=== PATIENT | female | born 1955 | race Caucasian/White ===

== ENCOUNTER → 2017-03-22 | Outpatient (CLI) | payer MEDICARE ==
[~2017-03-22] MED LIST: AMARYL PO; ASPIRIN ENTERI325 M1 PO; ASPIRIN81 M2 PO; ASPIRINEC PO; ATORVASTATIN CA80 MG PO; AVANDAMET 4 MG/1 TAB PO; BENAZEPRIL HCL40 MG PO; CELEXA PO; CITALOPRAM HBR40 M1 PO; COREG12.5 MG PO; COUMADIN5 MG PO; COVERA HS PO; CRESTOR PO; CRESTOR10 MG PO; ELIQUIS5 MG PO; FUROSEMIDE40 MG PO; HYDRALAZINE HCL25 MG PO; HYDROCHLOROTH12.5 MG PO; K-DUR20 ME2 PO; LANTUS100 U/ML SQ; LANTUS100 U/ML SUBQ; LASIX PO; LEVAQUIN750 M1 PO; LEVEMIR100 U/ML SQ; LIPITOR80 MG PO; LISINOPRIL20 MG PO; LISINOPRIL5 MG PO; LOTENSIN HCT 201 TA1 PO; LOTENSIN40 MG PO; LOVENOX80 MG/0.8 INJ; METOCLOPRAMIDE H5 M1 PO; METOCLOPRAMIDE H5 MG PO; NITROGLYCERIN0.4 MG SL; NORVASC10 MG PO; NOVOLOG FL100 UNIT/1 SUBQ; NOVOLOG100 U/M1 SQ; NOVOLOG100 U/M1 SUBQ; NOVOLOG100 U/ML SQ; NOVOLOG7030 SUBQ; PANTOPRAZOLE SO40 MG PO; PERCOCET 5-3251 TAB PO; PLAVIX PO; POTASSIUM CHLO10 MEQ PO; PRO-AMATINE5 M1 PO; PROAMATINE10 MG PO; TOPROL XL PO; VIMPAT150 MG PO; VIMPAT50 MG PO; VITAMIN D1000 UNIT PO; ZESTRIL10 M2 PO; ZOCOR PO
--- NOTE | ~2017-03-22 | MY29 ---
[facility] A Service of [facility] RADIOLOGY TEXT RESULTS PATIENT: MEY NEWTON LOCATION: [facility] : 51 UNIT #: [id number] AGE: [address]: Isaias España MD SEX: F ORDER DR: [id number] [facility] [address]. [place], [place] [address] [id number] O MR#: [id number] Acc #: [id number] NAME: MEY NEWTON. : 1955 SEX: F STUDY DATE/TIME: 03/22/2017 14:58 UNIT: [facility] ROOM: STUDY DESCRIPTION: [facility] SCREENING W/ CAD BILAT Attending Physician: Isaias España M.D. Referring Physician: Isaias España M.D. Ordering Physician: Isaias España M.D. Primary Care Physician: Isaias España M.D. MEDICAL IMAGING REPORT This report is preliminary unless electronic signature is present EXAM Digital screening mammogram 03/22/2017 HISTORY 61-year-old woman positive family history, sister age 57. Annual screen. COMPARISON 12/01/2010. FINDINGS Digital imaging of each breast was completed utilizing screening protocol. Review includes FDA-approved CAD device. Breast parenchyma is partially fatty replaced. Vascular calcification is noted bilaterally. There is no interval occurring mass. There are no suspicious microcalcifications and no focal architectural distortion. IMPRESSION Negative mammogram. Annual screening recommended. Patients over the age of 40 are entered into a reminder system with target due date for the next mammogram. A result letter will also be sent to the patient. BIRADS: 1 Negative Dictated by... Fran Butler M.D. THIS IS AN ELECTRONICALLY VERIFIED REPORT Fran Butler M.D. at 03/23/2017 8:58 AM LJB/jamal [facility] A Service [facility] RADIOLOGY TEXT RESULTS PATIENT: MEY NEWTON LOCATION: [facility] : 51 UNIT #: [id number] AGE: [address]: Isaias España MD SEX: F ORDER DR: TD: 03/23/2017 08:33 JOB #: [id number] MEDICAL IMAGING REPORT Page 1 of 1 COPY
== END | disposition home or self-care (01) ==
LOC: CWCC 14:39
DX: Z12.31 Encounter for screening mammogram for malignant neoplasm of breast (principal); Z80.3 Family history of malignant neoplasm of breast
CPT/HCPCS: G0202